=== PATIENT | male | born 1950 | race Caucasian/White ===

== ENCOUNTER 2016-12-15 21:10 | Emergency (ER) | payer OTHER ==
[~2016-12-15] VITALS: Ht 175.3 cm; Wt 77.1 kg
[~2016-12-15 21:10] MED LIST: ALBUTEROL0.09 MG/A2 INH; ROBITUSSIN W/CO10 ML PO
[2016-12-15 22:48] LABS: ABSOLUTE BASOPHIL COUNT 0.1 /CUMM (0.0-0.2); ABSOLUTE EOSINOPHIL COUNT 0.2 /CUMM (0.0-0.7); ABSOLUTE GRANULOCYTE CT 7.4 /CUMM (1.4-6.5); ABSOLUTE LYMPH COUNT 3.2 /CUMM (1.2-3.4); ABSOLUTE MONOCYTE COUNT 0.7 /CUMM (0.10-0.60); BASOPHIL % 0.6 % (0.0-2.0); EOSINOPHIL % 1.4 % (0-5); GRANULOCYTE % 64.3 % (42.2-75.2); HEMATOCRIT 42.7 % (42-52); MEAN CORPUSCULAR HGB CONC 33.3 G/DL (33.0-37.0); MEAN CORPUSCULAR VOLUME 93.1 FL (80.0-94.0); MEAN PLATELET VOLUME 8.9 FL (7.4-10.4); PLATELET COUNT 222 /CUMM (130-400); RBC DISTRIBUTION WIDTH 13.8 % (11.5-14.5); RED BLOOD CELL CT 4.58 /CUMM (4.70-6.10); WHITE BLOOD CELL COUNT 11.5 /CUMM (4.8-10.8)
--- NOTE | 2016-12-15 23:38 | CT SCAN REPORT ---
EXAMINATION: CT ABDOMEN AND PELVIS WITH CONTRAST CLINICAL INFORMATION: Right-sided abdominal pain COMPARISON: None TECHNIQUE: Multidetector volumetric imaging was performed of the abdomen and pelvis before and after the IV administration of 95 mL of Omnipaque 300 intravenous contrast. Sagittal and coronal reformatted images were obtained on the technologist's workstation. DLP: 503.2 mGy-cm FINDINGS: LUNG BASES: There are bibasilar areas of atelectasis. No focal consolidation. There is a pulmonary nodule within the right middle lobe measuring 0.3 cm in size, subpleural location (image 2, series 2). LIVER, GALLBLADDER, AND BILIARY TREE: The liver is diffusely low in attenuation. No focal enhancing lesion. No intrahepatic or extrahepatic biliary dilatation. The gallbladder is nondistended. There is no pericholecystic fluid or wall edema. However, within the central lumen of the gallbladder there is a large lamellated stone measuring up to 3.2 cm. There is mild hyperenhancement of the gallbladder neck (image 30, series 2). Common bile duct is normal in caliber. PANCREAS: Unremarkable. SPLEEN: Unremarkable. ADRENAL GLANDS: Unremarkable. KIDNEYS AND URETERS: The kidneys are normal in size, shape, and attenuation. No hydronephrosis, hydroureter, or calculi seen. No perinephric stranding. BLADDER: Unremarkable. GASTROINTESTINAL TRACT: The small and large bowel are unremarkable. The appendix is unremarkable. There are a few scattered diverticula of the distal descending colon into the colon. ABDOMINAL WALL: There is a moderate right sided fat-containing inguinal hernia. There is a small left-sided fat-containing inguinal hernia. LYMPH NODES: Normal. VASCULAR: There are mild calcific atherosclerotic disease involving the abdominal aorta and branches. PELVIC VISCERA: Prostate and seminal vesicles are grossly unremarkable. OSSEOUS STRUCTURES: There is no acute fracture or subluxation. There are endplate changes including sclerosis at the L4-L5 and L5-S1 levels. In addition, there are mildly prominent anterior osteophytes and vacuum disc phenomena. IMPRESSION: 1. Large gallstone. Mild inflammatory changes noted of the gallbladder neck. No specific CT evidence for acute cholecystitis. Clinical correlation recommended. 2. Hepatic steatosis. 3. Moderate right-sided fat containing inguinal hernia. 4. Diverticulosis without CT evidence for acute reticularis.
--- NOTE | 2016-12-16 00:52 | ED GI/GU/ABDOMINAL COMPLAINT ---
History of Present Illness General Chief Complaint: Abdominal Pain/Flank Pain Stated Complaint: RIGHT SIDED ABDOMINAL PAIN X3DAYS Source: patient Exam Limitations: no limitations Allergies Coded Allergies: NO KNOWN ALLERGIES (05/14/13) Triage Note: PT TO TRIAGE WITH C/O RIGHT MIDDLE ABDOMINAL PAIN 5/10 x3DAYS. PT DENIES ANY OTHER SYMPTOMS, LAST BM TODAY WNL. PT AFEBRILE IN TRIAGE, VSS. Triage Nurses Notes Reviewed? yes Onset: Abrupt Duration: day(s): (4), constant, continues in ED Timing: recent history Quality/Severity: moderate, sharpness, severe Location: right lower quadrant Radiation: no radiation Activities at Onset: none No Modifying Factors: none HPI: 66-year-old male comes into emergency room for further evaluation of right lower abdominal pain has been going on for the past 3-4 days. Denies any fever chills vomiting. Denies any changes in bowel movement. Denies any blood in stool. Pain has been continuous. Nothing seems to make it better or worse. Denies any other associated symptoms. (RADHA HERNANDEZ,ANASTASIA) Vital Signs & Intake/Output Vital Signs & Intake/Output Vital Signs Date Time Temp Pulse Resp B/P Pulse O2 O2 Flow FiO2 Ox Delivery Rate 12/16 0133 98.7 80 18 132/80 97 Room Air 12/15 2338 98.3 79 20 131/82 99 Room Air 12/15 2114 97.7 85 18 137/90 97 Room Air ED Intake and Output 12/16 0000 12/15 1200 Intake Total 0 Output Total Balance 0 Intake, Oral 0 Patient 170 lb Weight Reconcile Medications Albuterol (Albuterol Inhaler) 0.09 MG/Actuation BRIGHT 2-4 INH INH Q6P PRN COUGH, WHEEZING Hydromorphone HCl (Dilaudid) 2 MG TABLET 1 TAB PO Q12 PRN PAIN Robitussin AC (Guaifenesin-Codeine Syrup) 10 ML UDC 1-2 TSP PO Q6P PRN COUGH (OSBALDO BAUTISTA DO) Past History Travel History Traveled to [place] past 21 day No Medical History Any Pertinent Medical History? see below for history Neurological: NONE EENT: NONE Cardiovascular: NONE Respiratory: NONE Gastrointestinal: NONE Hepatic: hepatitis C Renal: NONE Musculoskeletal: CHRONIC LLE PAIN Psychiatric: NONE Endocrine: NONE Blood Disorders: NONE Cancer(s): NONE SUSTAINABLE LANDSCAPE ARCHITECT/Reproductive: NONE Surgical History Surgical History: non-contributory Psychosocial History What is your primary language Polish Tobacco Use: Current Daily Use Daily Tobacco Use Amount/Type: => 5 Cigarettes daily Family History Hx Contributory? No (ANASTASIA PATEL) Review of Systems Review of Systems Constitutional: Reports: no symptoms. EENTM: Reports: no symptoms. Respiratory: Reports: no symptoms. Cardiovascular: Reports: no symptoms. GI: Reports: see HPI. Genitourinary: Reports: no symptoms. Musculoskeletal: Reports: no symptoms. Skin: Reports: no symptoms. Neurological/Psychological: Reports: no symptoms. Hematologic/Endocrine: Reports: no symptoms. Immunologic/Allergic: Reports: no symptoms. All Other Systems: Reviewed and Negative (ANASTASIA PATEL) Physical Exam Physical Exam General Appearance: well developed/nourished, no apparent distress, alert Head: atraumatic, normal appearance Eyes: Bilateral: normal appearance, EOMI. Ears, Nose, Throat, Mouth: hearing grossly normal, moist mucous membrane Neck: normal inspection, full range of motion Respiratory: normal breath sounds, no respiratory distress Cardiovascular: regular rate/rhythm Gastrointestinal: soft, tenderness right lower abdomen/mid axillary, negative Whelan sign, no rebound tenderness, no guarding Back: normal inspection Extremities: normal range of motion Neurologic/Psych: awake, alert, oriented x 3, normal gait, normal mood/affect Skin: intact, normal color Core Measures ACS in differential dx? No Severe Sepsis Present: No Septic Shock Present: No (ANASTASIA PATEL) Progress Differential Diagnosis: appendicitis, biliary colic, bowel obstruction, cholecystitis, diverticulitis, gastritis, hepatitis, pancreatitis, PUD/GERD, perforated viscous, pyelonephritis, SBO, testicular torsion, ureterolithiasis, urinary retention, urethritis, UTI/pyelo Plan of Care: Orders Procedure Date/time Status URINALYSIS 12/15 2216 Complete LIPASE 12/15 2216 Complete COMPREHENSIVE METABOLIC PANEL 12/15 2216 Complete CBC WITHOUT DIFFERENTIAL 12/15 2216 Complete AMYLASE 12/15 2216 Complete Laboratory Tests 12/15/16 2249: Urine Color YEL, Urine Clarity CLEAR, Urine pH 7.0, Ur Specific [place] 1.020, Urine Protein NEG, Urine Ketones NEG, Urine Nitrite NEG, Urine Bilirubin NEG, Urine Urobilinogen 1.0, Ur Leukocyte Esterase NEG, Ur Microscopic EXAM NOT REQUIRED, Urine Hemoglobin NEG, Urine Glucose NEG 12/15/16 2242: Anion Gap 9, Estimated GFR > 60, BUN/Creatinine Ratio 24.4, Glucose 94, Calcium 9.4, Total Bilirubin 0.4, AST 27, ALT 44, Alkaline Phosphatase 56, Total Protein 6.9, Albumin 4.0, Globulin 2.9, Albumin/Globulin Ratio 1.4, Amylase 63, Lipase 121, CBC w Diff NO MAN DIFF REQ, RBC 4.58 L, MCV 93.1, MCH 31.0, RDW 13.8, MPV 8.9, Gran % 64.3, Lymphocytes % 27.9, Monocytes % 5.8, Eosinophils % 1.4, Basophils % 0.6, Absolute Granulocytes 7.4 H, Absolute Lymphocytes 3.2, Absolute Monocytes 0.7 H, Absolute Eosinophils 0.2, Absolute Basophils 0.1, PUBS MCHC 33.3 Diagnostic Imaging: Viewed by Me: CT Scan. Discussed w/RAD: CT Scan. Radiology Impression: SERVICE DATE: 12/15/16 EXAM TYPE: CAT - CT ABD & PELVIS W IV CONTRAST EXAMINATION: CT ABDOMEN AND PELVIS WITH CONTRAST CLINICAL INFORMATION: Right-sided abdominal pain COMPARISON: None TECHNIQUE: Multidetector volumetric imaging was performed of the abdomen and pelvis before and after the IV administration of 95 mL of Omnipaque 300 intravenous contrast. Sagittal and coronal reformatted images were obtained on the technologist's workstation. DLP: 503.2 mGy-cm FINDINGS: LUNG BASES: There are bibasilar areas of atelectasis. No focal consolidation. There is a pulmonary nodule within the right middle lobe measuring 0.3 cm in size, subpleural location (image 2, series 2). LIVER, GALLBLADDER, AND BILIARY TREE: The liver is diffusely low in attenuation. No focal enhancing lesion. No intrahepatic or extrahepatic biliary dilatation. The gallbladder is nondistended. There is no pericholecystic fluid or wall edema. However, within the central lumen of the gallbladder there is a large lamellated stone measuring up to 3.2 cm. There is mild hyperenhancement of the gallbladder neck (image 30, series 2). Common bile duct is normal in caliber. PANCREAS: Unremarkable. SPLEEN: Unremarkable. ADRENAL GLANDS: Unremarkable. KIDNEYS AND URETERS: The kidneys are normal in size, shape, and attenuation. No hydronephrosis, hydroureter, or calculi seen. No perinephric stranding. BLADDER: Unremarkable. GASTROINTESTINAL TRACT: The small and large bowel are unremarkable. The appendix is unremarkable. There are a few scattered diverticula of the distal descending colon into the colon. ABDOMINAL WALL: There is a moderate right sided fat-containing inguinal hernia. There is a small left- sided fat-containing inguinal hernia. LYMPH NODES: Normal. VASCULAR: There are mild calcific atherosclerotic disease involving the abdominal aorta and branches. PELVIC VISCERA: Prostate and seminal vesicles are grossly unremarkable. OSSEOUS STRUCTURES: There is no acute fracture or subluxation. There are endplate changes including sclerosis at the L4-L5 and L5-S1 levels. In addition, there are mildly prominent anterior osteophytes and vacuum disc phenomena. IMPRESSION: 1. Large gallstone. Mild inflammatory changes noted of the gallbladder neck. No specific CT evidence for acute cholecystitis. Clinical correlation recommended. 2. Hepatic steatosis. 3. Moderate right-sided fat containing inguinal hernia. 4. Diverticulosis without CT evidence for acute reticularis. DICTATED BY: JAQUELIN CONNOR MD DATE/TIME DICTATED:12/15/162324 JEWELRY CUTTER:JACQUES Initial ED EKG: none Hand-Off Endorsed To: OSBALDO BAUTISTA DO Endorsed Time: 0103 Pending: consult (surgery) Comments: 12/16/2016 12:52:[address] Brock. Surgical PA will consult on the patient. Patient resting comfortably in no apparent distress in room. (ANASTASIA PATEL) Departure Departure Disposition: STILL A PATIENT Condition: Stable Clinical Impression Primary Impression: Abdominal pain Referrals: KATERINA OROZCO DO (PCP/Family) ADY CALIX,CARIDAD Ty Additional Instructions: Follow-up with general surgeon provided. Return if any concerns worsening symptoms. Return if any fever or vomiting increased right upper abdominal pain. Follow-up with your primary care physician this week. Return to the emergency room at any time sooner if you have worsening of your symptoms or any other concerns. Please note that there might be incidental findings in your evaluation that are unrelated to the current emergency department visit. Please notify your primary care doctor about this emergency department visit in order to obtain and review all of the testing performed so that these incidental findings can be monitored as needed. If you were prescribed a narcotic use caution as this medication is highly addictive and will make you drowsy use for breakthrough pain only. No driving, drinking alcohol or operating machinary when taking. If you had an x-ray performed, please understand that some fractures may not be seen on the initial set of x-rays. If your symptoms persist you might need a repeat set of x-rays to check for such a fracture. If you had a laceration evaluated, please understand that foreign bodies such as glass or wood may not be visible to the naked eye or on plain x-rays. If the wound becomes red, swollen, increasingly more painful or if there is any drainage from the wound, please have it reevaluated by a physician for the possibility of a retained foreign body. Departure Forms: Customer Survey General Discharge Information (ANASTASIA PATEL) Departure Prescriptions: Current Visit Scripts Hydromorphone HCl (Dilaudid) 1 TAB PO Q12 PRN PAIN #6 TAB Comments 12/16/16 The patient was seen and evaluated and cleared by surgery. He will follow-up with the surgeon on Saturday continue to take his oxycodone as directed for pain. Avoid fatty foods. 1:26 AM Patient seen and examined. Abdomen soft and nontender. He was evaluated by surgery. He will follow-up with Dr. Brock this week or return to the emergency department if fever or worse. DILAUDID GIVEN FOR BRAKTHROUGH PAIN (OSBALDO BAUTISTA DO)
--- NOTE | 2016-12-16 01:31 | Cons- General Surgery ---
General Information and HPI Consulting Request Date of Consult: 12/16/16 Requested By: ED Reason for Consult: abdominal pain Source of Information: patient Exam Limitations: no limitations History of Present Illness: Patient is a 66 year old male with a past medical history significant for Hepatitis C who presented to the ED tonight with a 3 day history of constant abdominal pain to the right side of his abdomen. The pain was not described as post prandial and cannot be attributed to something he ate. He denies N/V, F/C, CP/SOB, dysuria, or cough. He does state it radiates to his right flank area and pain is reproducible when he touches his abdomen. No abdominal surgeries in his past surgical history with the exception of laparoscopic bilateral inguinal hernia repairs. 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 Surgical History Pertinent Surgical History: hernia repair-inguinal (bilateral laparoscopic- BPT) Psychosocial History Primary Language: [place] Smoking Status: Current Everyday Smoker (1 ppd x30 years) ETOH Use: denies use Illicit Drug Use: denies illicit drug use Review of Systems Review of Systems: abdominal pain, no anorexia or weight loss Exam & Diagnostic Data Vital Signs and I&O Vital Signs Date Time Temp Pulse Resp B/P Pulse O2 O2 Flow FiO2 Ox Delivery Rate 12/15 2338 98.3 79 20 131/82 99 Room Air 12/15 2114 97.7 85 18 137/90 97 Room Air Intake & Output 12/16 0800 12/16 0000 12/15 1600 12/15 0800 12/15 0000 12/14 1600 Intake Total 0 Output Total Balance 0 Intake, Oral 0 Patient 170 lb Weight Physical Exam: Gen: AAOx3 in NAD Cor:S1+S2+ Lungs: CTA jose Abd: soft, tender to right side of abdomen, lateral to umbilicus, mild R CVA tenderness, no [place] sign, no RUQ tenderness. +BS x4. Ext: no edema or calf tenderness to jose lower extremities. Last 24 Hours of Labs: Laboratory Tests 12/159 2242 Chemistry Sodium (137 - 145 mmol/L) 139 Potassium (3.5 - 5.1 mmol/L) 4.5 Chloride (98 - 107 mmol/L) 104 Carbon Dioxide (22 - 30 mmol/L) 26 Anion Gap (5 - 16) 9 BUN (9 - 20 mg/dL) 22 H Creatinine (0.7 - 1.2 mg/dL) 0.9 Estimated GFR (>60 ml/min) > 60 BUN/Creatinine Ratio (7 - 25 %) 24.4 Glucose (65 - 99 mg/dL) 94 Calcium (8.4 - 10.2 mg/dL) 9.4 Total Bilirubin (0.2 - 1.3 mg/dL) 0.4 AST (17 - 59 U/L) 27 ALT (21 - 72 U/L) 44 Alkaline Phosphatase (< 127 U/L) 56 Total Protein (6.3 - 8.2 g/dL) 6.9 Albumin (3.5 - 5.0 g/dL) 4.0 Globulin (1.9 - 4.2 gm/dL) 2.9 Albumin/Globulin Ratio (1.1 - 2.2 %) 1.4 Amylase (30 - 110 U/L) 63 Lipase (23 - 300 U/L) 121 Hematology CBC w Diff NO MAN DIFF REQ WBC (4.8 - 10.8 /CUMM) 11.5 H RBC (4.70 - 6.10 /CUMM) 4.58 L Hgb (14.0 - 18.0 G/DL) 14.2 Hct (42 - 52 %) 42.7 MCV (80.0 - 94.0 FL) 93.1 MCH (27.0 - 31.0 PG) 31.0 RDW (11.5 - 14.5 %) 13.8 Plt Count (130 - 400 /CUMM) 222 MPV (7.4 - 10.4 FL) 8.9 Gran % (42.2 - 75.2 %) 64.3 Lymphocytes % (20.5 - 51.1 %) 27.9 Monocytes % (1.7 - 9.3 %) 5.8 Eosinophils % (0 - 5 %) 1.4 Basophils % (0.0 - 2.0 %) 0.6 Absolute Granulocytes (1.4 - 6.5 /CUMM) 7.4 H Absolute Lymphocytes (1.2 - 3.4 /CUMM) 3.2 Absolute Monocytes (0.10 - 0.60 /CUMM) 0.7 H Absolute Eosinophils (0.0 - 0.7 /CUMM) 0.2 Absolute Basophils (0.0 - 0.2 /CUMM) 0.1 PUBS MCHC (33.0 - 37.0 G/DL) 33.3 Urines Urine Color (YEL,AMB,STR) YEL Urine Clarity (CLEAR) CLEAR Urine pH (5.0 - 8.0) 7.0 Ur Specific [place] (1.001 - 1.035) 1.020 Urine Protein (NEG,<30 MG/DL) NEG Urine Ketones (NEG) NEG Urine Nitrite (NEG) NEG Urine Bilirubin (NEG) NEG Urine Urobilinogen (0.1 - 1.0 EU/dl) 1.0 Ur Leukocyte Esterase (NEG) NEG Ur Microscopic EXAM NOT REQUIRED Urine Hemoglobin (NEG) NEG Urine Glucose (N MG/DL) NEG Imaging Results: EXAM TYPE: CAT - CT ABD & PELVIS W IV CONTRAST EXAMINATION: CT ABDOMEN AND PELVIS WITH CONTRAST CLINICAL INFORMATION: Right-sided abdominal pain COMPARISON: None TECHNIQUE: Multidetector volumetric imaging was performed of the abdomen and pelvis before and after the IV administration of 95 mL of Omnipaque 300 intravenous contrast. Sagittal and coronal reformatted images were obtained on the technologist's workstation. DLP: 503.2 mGy-cm FINDINGS: LUNG BASES: There are bibasilar areas of atelectasis. No focal consolidation. There is a pulmonary nodule within the right middle lobe measuring 0.3 cm in size, subpleural location (image 2, series 2). LIVER, GALLBLADDER, AND BILIARY TREE: The liver is diffusely low in attenuation. No focal enhancing lesion. No intrahepatic or extrahepatic biliary dilatation. The gallbladder is nondistended. There is no pericholecystic fluid or wall edema. However, within the central lumen of the gallbladder there is a large lamellated stone measuring up to 3.2 cm. There is mild hyperenhancement of the gallbladder neck (image 30, series 2). Common bile duct is normal in caliber. PANCREAS: Unremarkable. SPLEEN: Unremarkable. ADRENAL GLANDS: Unremarkable. KIDNEYS AND URETERS: The kidneys are normal in size, shape, and attenuation. No hydronephrosis, hydroureter, or calculi seen. No perinephric stranding. BLADDER: Unremarkable. GASTROINTESTINAL TRACT: The small and large bowel are unremarkable. The appendix is unremarkable. There are a few scattered diverticula of the distal descending colon into the colon. ABDOMINAL WALL: There is a moderate right sided fat-containing inguinal hernia. There is a small left-sided fat-containing inguinal hernia. LYMPH NODES: Normal. VASCULAR: There are mild calcific atherosclerotic disease involving the abdominal aorta and branches. PELVIC VISCERA: Prostate and seminal vesicles are grossly unremarkable. OSSEOUS STRUCTURES: There is no acute fracture or subluxation. There are endplate changes including sclerosis at the L4-L5 and L5-S1 levels. In addition, there are mildly prominent anterior osteophytes and vacuum disc phenomena. IMPRESSION: 1. Large gallstone. Mild inflammatory changes noted of the gallbladder neck. No specific CT evidence for acute cholecystitis. Clinical correlation recommended. 2. Hepatic steatosis. 3. Moderate right-sided fat containing inguinal hernia. 4. Diverticulosis without CT evidence for acute reticularis. DICTATED BY: JAQUELIN CONNOR MD DATE/TIME DICTATED:12/15/162324 PAYROLL SERVICES ANALYST:JACQUES DATE/TIME TRANSCRIBED:12/15/162324 CONFIDENTIAL, DO NOT COPY WITHOUT APPROPRIATE AUTHORIZATION. <Electronically signed in Other Vendor System> SIGNED BY: JAQUELIN CONNOR MD 12/15/16 2994 Assessment/Plan Assessment/Plan A: 66 year old male with Hepatitis C presented to ED with 3 day hx of right sided abdominal pain, not post prandial and S/S not consistent with biliary colic or cholecystitis; AVSS. Mild leukocytosis 11k. No nausea or vomiting. Plan: Discussed with Dr. Brock. Can D/C home tonight with outpatient follow up with Dr. Brock as needed for abdominal pain. May need ultrasound to better evaluate gallbladder in future. Discussed plan with Dr. Watts. Consult Acknowledgment - Thank you for your consult request.
[2016-12-16 01:33] VITALS: BP 132/80
[2016-12-16] MEDS ORDERED: DILAUDID2 M1 PO (01:33)
== END 2016-12-16 01:52 ==
LOC: ERH 21:10
PROVIDERS: Physician Assistant Medical
DX: R10.31 Right lower quadrant pain (principal)
CPT/HCPCS: 74177; 81003

== ENCOUNTER → 2018-05-30 | Day surgery (SDC) | payer OTHER, MEDICARE ==
[~2018-05-30] VITALS: Ht 175.3 cm; Wt 77.1 kg
[~2018-05-30] MED LIST changes: +DILAUDID2 M1 PO; +IBUPROFEN800 M1 PO
--- NOTE | 2018-05-30 09:30 | Operative Report ---
Operative/Inv Procedure Report Surgery Date: 05/30/18 Name of Procedure: Laparoscopic cholecystectomy Pre-Operative Diagnosis: Biliary colic Post-Operative Diagnosis: Chronic cholecystitis Estimated Blood Loss: less than 50ml Surgeon/Other Sales Support Worker: Vinod CALIX,Naga Ty/Ene HERNANDEZ Anesthesia: general endotracheal tube Drains: None Specimens: Gallbladder Operative/Procedure Note Note: After informed consent patient is brought to the operating room and laid supine. General anesthesia was obtained and his abdomen was prepped and draped. The skin above the umbilicus infiltrated with local anesthesia and a curvilinear incision made sharply. We came down through the subcutaneous tissues bluntly and grasped the fascia with Winton's. A fasciotomy was created sharply and stay sutures placed. The peritoneum was entered sharply and a blunt Sanchez port was placed. Pneumoperitoneum was achieved. 3, 5 mm ports were placed in the epigastrium and right upper quadrant after local anesthesia was instilled and under direct vision the camera. he's placed in reverse Trendelenburg and rotated towards the left. The gallbladder is identified. It was grasped at the dome and retracted towards the head. Infundibulum was then grasped. Adhesions to the undersurface were taken down with blunt and cautery dissection. There was a large amount of intraperitoneal fat adherent to the gallbladder. Dissection was difficult but uncomplicated. We dissected both sides the triangle [place]ot peritoneal tissue with cautery. The artery was not identified in the triangle.. [place] was cleared of areolar tissue with cautery. The duct was quite obvious. Actually after the dissection was completed,, bile duct was fully visualized. The cystic duct was then doubly ligated with clips. Gallbladder is removed from the fossa electrocautery. Half with the wall we encountered multiple branches of the artery which were serially ligated with clips. The liver bed was then assessed for hemostasis and deemed adequate. The gallbladder was placed in Endo Catch bag and cinched up. Right upper quadrant was and suction irrigated normal saline. The ports were then removed and the gallbladder delivered and passed off the field. There is one large stone requiring dilatation of the fascial opening for delivery. The fascia was closed with 0 Vicryl suture. Skin incisions closed with 4-0 Vicryl. Steri-Strips and sterile dressing applied. Sponge and needle counts are correct. CC: Aleksey CALIX,Aleksey
== END ==
LOC: STS 00:51
DX: K80.10 Calculus of gallbladder with chronic cholecystitis without obstruction (principal); F17.200 Nicotine dependence, unspecified, uncomplicated
CPT/HCPCS: J0131; J0690; J2250; J3490